=== PATIENT | male | born 1970 | race Two or more races ===

== ENCOUNTER 2018-08-27 23:24 | Emergency (ER) | payer OTHER ==
[~2018-08-27] VITALS: Ht 170.2 cm; Wt 76.2 kg
--- NOTE | 2018-08-28 00:19 | NUR ---
URINE SPECIMEN OBTAINED AND SENT TO THE LAB.
--- NOTE | 2018-08-28 00:20 | NUR ---
PT PRESENTED TO THE ER WITH C/O ABD PAIN. PT STATED THAT HE HAS A HX OF PANCREATITIS. PT HAS BEEN SOBER UNTIL TODAY. PT GAVE A URINE SAMPLE AND AMBULATED TO ER 4.
[2018-08-28] MEDS ORDERED: IV NS 0.9% 1,000 ML BAG IV ONE (00:30)
[2018-08-28] MEDS ORDERED: HYDROMORPHONE 1 MG/1 ML DISP.SYRIN IV ONE (00:30)
[2018-08-28] MEDS ORDERED: ONDANSETRON HCL/PF 4 MG/2 ML VIAL IVP ONE (00:30)
[2018-08-28] MEDS ORDERED: ONDANSETRON HCL/PF 4 MG/2 ML VIAL ONE (00:53)
[2018-08-28] MEDS ORDERED: HYDROMORPHONE 1 MG/1 ML DISP.SYRIN ONE (00:53)
[2018-08-28 00:56] LABS: BASOPHILS % (AUTO) 0.4 % (0.0-2.0); HEMATOCRIT 42 % (39-51); HEMOGLOBIN 14.3 g/dL (13.5-17.5); LYMPHOCYTES # (AUTO) 2.9 /CMM (0.8-4.8); LYMPHOCYTES % (AUTO) 33.2 % (20.0-44.0); MEAN CORPUSCULAR HGB CONC 34 g/dl (31.0-36.0); MEAN CORPUSCULAR VOLUME 94 fL (80-96); MONOCYTES # (AUTO) 0.5 /CMM (0.1-1.30); MONOCYTES % (AUTO) 5.8 % (2.0-12.0); NEUTROPHILS # (AUTO) 5.2 /CMM (1.8-8.9); NEUTROPHILS % (AUTO) 59.6 % (43.0-81.0); PLATELET COUNT (AUTO) 122 /CMM (150-450); RED BLOOD CELL COUNT(AUTO) 4.44 MIL/uL (4.5-6.0); WHITE BLOOD COUNT (AUTO) 8.7 K/uL (4.3-11.0)
[2018-08-28 01:06] LABS: APPEARANCE,URINE CLEAR (CLEAR); BILIRUBIN,URINE NEGATIVE (NEGATIVE); BLOOD, URINE NEGATIVE Ery/uL (NEGATIVE); COLOR,URINE YELLOW (YELLOW); KETONES,URINE NEGATIVE (NEGATIVE); LEUKOCYTE ESTERASE ,URINE NEGATIVE (NEGATIVE); NITRITE, URINE NEGATIVE (NEGATIVE); PH,URINE 5.5 (5.0-8.0); PROTEIN,URINE NEGATIVE (NEGATIVE); UGLUCOSE NEGATIVE (NEGATIVE); UROBILINOGEN,URINE 0.2 EU/dL (0.2)
--- NOTE | 2018-08-28 01:09 | NUR ---
PT REC'D MEDICATION ORDERED.
[2018-08-28 01:10] LABS: CALCIUM, SERUM 8.7 mg/dL (8.5-10.1); CARBON DIOXIDE 25 mmol/L (21-32); CHLORIDE 106 mmol/L (98-107); CREATININE 0.9 mg/dL (0.6-1.3); GLUCOSE 100 mg/dL (74-106); POTASSIUM 3.8 mmol/L (3.5-5.1); SODIUM SERUM 143 mmol/L (136-145); UREA NITROGEN, BLOOD 6 mg/dL (7-18)
[2018-08-28 01:14] LABS: ALANINE AMINOTRANSFERASE 88 U/L (12-78); ALBUMIN 4.1 g/dL (3.4-5.0); ALKALINE PHOSPHATASE 124 U/L (46-116); ASPARTATE AMINOTRANSFERASE 122 U/L (15-37); BILIRUBIN,DIRECT 0.4 mg/dL (0.0-0.2); BILIRUBIN,TOTAL 0.8 mg/dL (0.2-1.0); LIPASE 24 U/L (73-393); TOTAL PROTEIN, SERUM 7.6 g/dL (6.4-8.2)
--- NOTE | 2018-08-28 03:24 | NUR ---
PT REC'D GRIPPER SOCKS, TOOTHBRUSH AND TOOTHPASTE, AND A COMB. PT ALSO REC'D A TAP CARD TO USE WHEN THE BUSES ARE RUNNING LATER THIS MORNING. PT REC'D SANDWICHES AND JUICE. PT IS CURRENTLY IN THE ROOM USING THE SINK TO BRUSH HIS TEETH AND WASH HIS FACE.
[2018-08-28 04:25] VITALS: BP 158/86
== END 2018-08-28 03:27 | disposition home or self-care (01) ==
LOC: ER 23:26
DX: K86.1 Other chronic pancreatitis (principal); K29.20 Alcoholic gastritis without bleeding; F10.10 Alcohol abuse, uncomplicated; F17.200 Nicotine dependence, unspecified, uncomplicated; Z98.890 Other specified postprocedural states
CPT/HCPCS: 36415; 71045; 74176; 80048; 80076; 81001; 83690; 84484; 85025; 85730; 93005; 96361; 96374; 96375; 99284; A4606; J1170; J2405; J7030; 81000-TC